=== PATIENT | female | born 1960 | race Caucasian/White ===

== ENCOUNTER 2016-10-05 02:56 | Outpatient (CLI) | payer BC | END 2016-10-05 02:57 | disposition EMS.NT | DX: R03.0 Elevated blood-pressure reading, without diagnosis of hypertension (principal) ==

== ENCOUNTER 2017-10-05 07:33 | Outpatient (CLI) | payer BC ==
[2017-10-05 10:25] LABS: BASOPHILS % (AUTO) 0.5 %; EOSINOPHILS # (AUTO) 0.1 10^3/uL (0.0-0.7); EOSINOPHILS % (AUTO) 2.7 %; HGB - HEMOGLOBIN 11.6 g/dL (12.0-16.0); LYMPHOCYTES # (AUTO) 1.2 10^3/uL (1.5-3.5); LYMPHOCYTES % (AUTO) 29.5 %; MEAN CORPUSCULAR HEMOGLOBIN 31.3 pg (27.0-31.0); MEAN CORPUSCULAR HGB CONC 33.5 g/dL (32.0-36.0); MEAN CORPUSCULAR VOLUME 93.2 fL (81.0-99.0); MEAN PLATELET VOLUME 7.3 fL (7.9-10.8); MONOCYTES # (AUTO) 0.2 10^3/uL (0.0-1.0); MONOCYTES % (AUTO) 5.3 %; NEUTROPHILS # (AUTO) 2.5 10^3/uL (1.5-6.6); PLT - PLATELET COUNT 226 10^3/uL (130-450); RED BLOOD COUNT 3.73 10^6/uL (4.20-5.40); RED CELL DISTRIBUTION WIDTH 14.5 % (12.0-15.0)
== END 2017-10-05 07:34 | disposition home or self-care (01) ==
LOC: LAB.F 07:33
PROVIDERS: ATTEND Obstetrics & Gynecology
DX: C56.9 Malignant neoplasm of unspecified ovary (principal)
CPT/HCPCS: 36415; 85025

== ENCOUNTER 2017-10-22 07:15 | Outpatient (CLI) | payer BC ==
[2017-10-22 10:29] LABS: BASOPHILS % (AUTO) 0.4 %; EOSINOPHILS # (AUTO) 0.1 10^3/uL (0.0-0.7); EOSINOPHILS % (AUTO) 2.6 %; LYMPHOCYTES # (AUTO) 1.1 10^3/uL (1.5-3.5); LYMPHOCYTES % (AUTO) 40.8 %; MEAN CORPUSCULAR HEMOGLOBIN 31.2 pg (27.0-31.0); MEAN CORPUSCULAR HGB CONC 33.9 g/dL (32.0-36.0); MEAN PLATELET VOLUME 6.9 fL (7.9-10.8); MONOCYTES # (AUTO) 0.5 10^3/uL (0.0-1.0); MONOCYTES % (AUTO) 18.4 %; NEUTROPHILS % (AUTO) 37.8 %; PLT - PLATELET COUNT 269 10^3/uL (130-450); RED BLOOD COUNT 3.85 10^6/uL (4.20-5.40); WHITE BLOOD COUNT 2.7 x10^3/uL (4.8-10.8)
[2017-10-22 10:41] LABS: ALBUMIN 3.8 g/dL (3.2-5.5); ALBUMIN/GLOBULIN RATIO 1.5 (1.0-2.2); BILIRUBIN,TOTAL 0.3 mg/dL (0.2-1.0); CREATININE 0.8 mg/dL (0.4-1.0); MAGNESIUM 1.9 mg/dL (1.7-2.8); TOTAL PROTEIN 6.4 g/dL (6.7-8.2)
[2017-10-22 11:08] LABS: PLATELET ESTIMATE, MANUAL NORMAL (130-450,000) (NORMAL); PLATELET MORPHOLOGY NORMAL APPEARANCE (NORMAL); RBC MORPHOLOGY (MULTIPLE) NORMAL APPEARANCE (NORMAL)
== END 2017-10-22 07:16 | disposition home or self-care (01) ==
LOC: LAB.F 07:15
PROVIDERS: ATTEND Obstetrics & Gynecology
DX: C56.9 Malignant neoplasm of unspecified ovary (principal)
CPT/HCPCS: 36415; 80053; 83735; 85025; 86304

== ENCOUNTER 2017-11-02 07:09 | Outpatient (CLI) | payer BC ==
[2017-11-02 11:53] LABS: BASOPHILS % (AUTO) 0.7 %; EOSINOPHILS % (AUTO) 1.3 %; HGB - HEMOGLOBIN 11.6 g/dL (12.0-16.0); LYMPHOCYTES # (AUTO) 0.9 10^3/uL (1.5-3.5); LYMPHOCYTES % (AUTO) 22.6 %; MEAN CORPUSCULAR HEMOGLOBIN 31.2 pg (27.0-31.0); MEAN CORPUSCULAR HGB CONC 33.9 g/dL (32.0-36.0); MONOCYTES # (AUTO) 0.2 10^3/uL (0.0-1.0); MONOCYTES % (AUTO) 6.3 %; NEUTROPHILS # (AUTO) 2.7 10^3/uL (1.5-6.6); NEUTROPHILS % (AUTO) 69.1 %; PLT - PLATELET COUNT 120 10^3/uL (130-450); RED CELL DISTRIBUTION WIDTH 15.4 % (12.0-15.0); WHITE BLOOD COUNT 3.9 x10^3/uL (4.8-10.8)
[2017-11-02 12:15] LABS: ALBUMIN 3.6 g/dL (3.2-5.5); ALBUMIN/GLOBULIN RATIO 1.3 (1.0-2.2); BILIRUBIN,TOTAL 0.4 mg/dL (0.2-1.0); CALCIUM 8.7 mg/dL (8.5-10.3); CREATININE 0.7 mg/dL (0.4-1.0); MAGNESIUM 1.9 mg/dL (1.7-2.8); TOTAL PROTEIN 6.4 g/dL (6.7-8.2)
== END 2017-11-02 07:10 | disposition home or self-care (01) ==
LOC: LAB.F 07:09
PROVIDERS: ATTEND Obstetrics & Gynecology
DX: C56.9 Malignant neoplasm of unspecified ovary (principal)
CPT/HCPCS: 36415; 80053; 83735; 85025; 86304

== ENCOUNTER 2017-11-19 07:35 | Outpatient (CLI) | payer BC ==
[2017-11-19 11:07] LABS: BASOPHILS % (AUTO) 1.1 %; EOSINOPHILS # (AUTO) 0.1 10^3/uL (0.0-0.7); EOSINOPHILS % (AUTO) 3.1 %; LYMPHOCYTES # (AUTO) 1.1 10^3/uL (1.5-3.5); LYMPHOCYTES % (AUTO) 36.4 %; MEAN CORPUSCULAR HEMOGLOBIN 31.2 pg (27.0-31.0); MEAN CORPUSCULAR HGB CONC 33.9 g/dL (32.0-36.0); MEAN PLATELET VOLUME 7.3 fL (7.9-10.8); MONOCYTES # (AUTO) 0.6 10^3/uL (0.0-1.0); NEUTROPHILS # (AUTO) 1.2 10^3/uL (1.5-6.6); NEUTROPHILS % (AUTO) 40.4 %; PLT - PLATELET COUNT 325 10^3/uL (130-450); RED BLOOD COUNT 3.84 10^6/uL (4.20-5.40); RED CELL DISTRIBUTION WIDTH 16.4 % (12.0-15.0)
[2017-11-19 11:33] LABS: ALBUMIN 3.8 g/dL (3.2-5.5); ALBUMIN/GLOBULIN RATIO 1.5 (1.0-2.2); BILIRUBIN,TOTAL 0.6 mg/dL (0.2-1.0); CALCIUM 8.9 mg/dL (8.5-10.3); CREATININE 0.8 mg/dL (0.4-1.0); MAGNESIUM 1.8 mg/dL (1.7-2.8); TOTAL PROTEIN 6.3 g/dL (6.7-8.2)
== END 2017-11-19 07:36 | disposition home or self-care (01) ==
LOC: LAB.F 07:35
PROVIDERS: ATTEND Obstetrics & Gynecology
DX: C56.9 Malignant neoplasm of unspecified ovary (principal)
CPT/HCPCS: 36415; 80053; 83735; 85025; 86304

== ENCOUNTER 2017-11-30 07:26 | Outpatient (CLI) | payer BC ==
[2017-11-30 12:17] LABS: BASOPHILS % (AUTO) 0.9 %; EOSINOPHILS # (AUTO) 0.1 10^3/uL (0.0-0.7); EOSINOPHILS % (AUTO) 2.2 %; LYMPHOCYTES # (AUTO) 1.1 10^3/uL (1.5-3.5); LYMPHOCYTES % (AUTO) 30.5 %; MEAN CORPUSCULAR VOLUME 91.3 fL (81.0-99.0); MEAN PLATELET VOLUME 8.7 fL (7.9-10.8); MONOCYTES # (AUTO) 0.3 10^3/uL (0.0-1.0); MONOCYTES % (AUTO) 7.3 %; NEUTROPHILS # (AUTO) 2.1 10^3/uL (1.5-6.6); NEUTROPHILS % (AUTO) 59.1 %; PLT - PLATELET COUNT 109 10^3/uL (130-450); RED BLOOD COUNT 3.87 10^6/uL (4.20-5.40); RED CELL DISTRIBUTION WIDTH 16.5 % (12.0-15.0); WHITE BLOOD COUNT 3.5 x10^3/uL (4.8-10.8)
== END 2017-11-30 07:27 | disposition home or self-care (01) ==
LOC: LAB.F 07:26
PROVIDERS: ATTEND Obstetrics & Gynecology
DX: C56.9 Malignant neoplasm of unspecified ovary (principal)
CPT/HCPCS: 36415; 85025

== ENCOUNTER 2017-12-17 08:05 | Outpatient (CLI) | payer MEDICARE, BC ==
[2017-12-17 12:34] LABS: BASOPHILS % (AUTO) 1.1 %; EOSINOPHILS # (AUTO) 0.2 10^3/uL (0.0-0.7); EOSINOPHILS % (AUTO) 4.6 %; HGB - HEMOGLOBIN 12.4 g/dL (12.0-16.0); LYMPHOCYTES % (AUTO) 28.9 %; MEAN CORPUSCULAR HEMOGLOBIN 30.9 pg (27.0-31.0); MEAN CORPUSCULAR HGB CONC 33.4 g/dL (32.0-36.0); MEAN CORPUSCULAR VOLUME 92.7 fL (81.0-99.0); MEAN PLATELET VOLUME 7.9 fL (7.9-10.8); MONOCYTES # (AUTO) 0.6 10^3/uL (0.0-1.0); MONOCYTES % (AUTO) 17.9 %; NEUTROPHILS # (AUTO) 1.6 10^3/uL (1.5-6.6); NEUTROPHILS % (AUTO) 47.5 %; PLT - PLATELET COUNT 298 10^3/uL (130-450); RED BLOOD COUNT 4.01 10^6/uL (4.20-5.40); RED CELL DISTRIBUTION WIDTH 17.4 % (12.0-15.0); WHITE BLOOD COUNT 3.3 x10^3/uL (4.8-10.8)
[2017-12-17 12:47] LABS: ALBUMIN 3.7 g/dL (3.2-5.5); ALBUMIN/GLOBULIN RATIO 1.3 (1.0-2.2); BILIRUBIN,TOTAL 0.4 mg/dL (0.2-1.0); CALCIUM 9.3 mg/dL (8.5-10.3); CREATININE 0.7 mg/dL (0.4-1.0); MAGNESIUM 1.9 mg/dL (1.7-2.8); TOTAL PROTEIN 6.5 g/dL (6.7-8.2)
== END 2017-12-17 08:06 | disposition home or self-care (01) ==
LOC: LAB.F 08:05
PROVIDERS: ATTEND Obstetrics & Gynecology
DX: C56.9 Malignant neoplasm of unspecified ovary (principal)
CPT/HCPCS: 36415; 80053; 83735; 85025

== ENCOUNTER 2017-12-28 07:53 | Outpatient (CLI) | payer MEDICARE, BC ==
[2017-12-28 10:39] LABS: BASOPHILS % (AUTO) 0.7 %; EOSINOPHILS # (AUTO) 0.1 10^3/uL (0.0-0.7); HGB - HEMOGLOBIN 11.9 g/dL (12.0-16.0); LYMPHOCYTES # (AUTO) 0.8 10^3/uL (1.5-3.5); LYMPHOCYTES % (AUTO) 23.6 %; MEAN CORPUSCULAR HGB CONC 33.6 g/dL (32.0-36.0); MEAN CORPUSCULAR VOLUME 92.2 fL (81.0-99.0); MEAN PLATELET VOLUME 8.4 fL (7.9-10.8); MONOCYTES # (AUTO) 0.2 10^3/uL (0.0-1.0); MONOCYTES % (AUTO) 6.4 %; NEUTROPHILS # (AUTO) 2.3 10^3/uL (1.5-6.6); NEUTROPHILS % (AUTO) 67.3 %; PLT - PLATELET COUNT 112 10^3/uL (130-450); RED BLOOD COUNT 3.84 10^6/uL (4.20-5.40); WHITE BLOOD COUNT 3.5 x10^3/uL (4.8-10.8)
== END 2017-12-28 07:54 | disposition home or self-care (01) ==
LOC: LAB.F 07:53
PROVIDERS: ATTEND Obstetrics & Gynecology
DX: C56.9 Malignant neoplasm of unspecified ovary (principal)
CPT/HCPCS: 36415; 85025

== ENCOUNTER 2018-01-14 08:14 | Outpatient (CLI) | payer MEDICARE, BC ==
[2018-01-14 11:42] LABS: BASOPHILS % (AUTO) 0.7 %; EOSINOPHILS # (AUTO) 0.1 10^3/uL (0.0-0.7); EOSINOPHILS % (AUTO) 4.1 %; HGB - HEMOGLOBIN 12.3 g/dL (12.0-16.0); LYMPHOCYTES # (AUTO) 0.6 10^3/uL (1.5-3.5); LYMPHOCYTES % (AUTO) 24.6 %; MEAN CORPUSCULAR HEMOGLOBIN 31.3 pg (27.0-31.0); MEAN CORPUSCULAR HGB CONC 33.8 g/dL (32.0-36.0); MEAN CORPUSCULAR VOLUME 92.5 fL (81.0-99.0); MEAN PLATELET VOLUME 7.3 fL (7.9-10.8); MONOCYTES # (AUTO) 0.4 10^3/uL (0.0-1.0); MONOCYTES % (AUTO) 14.9 %; NEUTROPHILS # (AUTO) 1.4 10^3/uL (1.5-6.6); NEUTROPHILS % (AUTO) 55.7 %; PLT - PLATELET COUNT 322 10^3/uL (130-450); RED BLOOD COUNT 3.94 10^6/uL (4.20-5.40); RED CELL DISTRIBUTION WIDTH 17.3 % (12.0-15.0); WHITE BLOOD COUNT 2.5 x10^3/uL (4.8-10.8)
[2018-01-14 12:03] LABS: MAGNESIUM 1.9 mg/dL (1.7-2.8); PHOSPHORUS 3.9 mg/dL (2.5-4.6)
[2018-01-14 12:07] LABS: ALBUMIN 3.6 g/dL (3.2-5.5); ALBUMIN/GLOBULIN RATIO 1.3 (1.0-2.2); ALKALINE PHOSPHATASE 67 IU/L (42-121); ALT ALANINE AMINOTRANSFERASE 29 IU/L (10-60); AST ASPARTATE AMINOTRANSFERASE 25 IU/L (10-42); BILIRUBIN,TOTAL 0.5 mg/dL (0.2-1.0); BUN - BLOOD UREA NITROGEN 13 mg/dL (6-20); CALCIUM 9.4 mg/dL (8.5-10.3); CARBON DIOXIDE - CO2 28 mmol/L (21-32); CHLORIDE 103 mmol/L (101-111); CHOL/HDL RATIO 3.3 (<4.4); CHOLESTEROL 235 mg/dL; CREATININE 0.7 mg/dL (0.4-1.0); GFR - MDRD 86 (>89); GLUCOSE 121 mg/dL (70-100); HB2 TOTAL 13.4 g/dL; HDL CHOLESTEROL 72 mg/dL; HEMOGLOBIN A1C 0.55 g/dL; HEMOGLOBIN A1C % 5.9 % (4.6-6.2); LDL CHOLESTEROL,CALCULATED 125 mg/dL; LDL/HDL RATIO 1.7 (<4.4); SODIUM 138 mmol/L (135-145); TOTAL PROTEIN 6.4 g/dL (6.7-8.2); VLDL CHOLESTEROL 38 mg/dL
[2018-01-14 12:10] LABS: BILIRUBIN,DIRECT < 0.1 mg/dL (0.1-0.5)
[2018-01-14 13:01] LABS: PLATELET ESTIMATE, MANUAL NORMAL (130-450,000) (NORMAL); PLATELET MORPHOLOGY NORMAL APPEARANCE (NORMAL)
== END 2018-01-14 08:15 | disposition home or self-care (01) ==
LOC: LAB.F 08:14
PROVIDERS: ATTEND Obstetrics & Gynecology
DX: Z00.00 Encounter for general adult medical examination without abnormal findings (principal); C56.1 Malignant neoplasm of right ovary; R73.01 Impaired fasting glucose; I10 Essential (primary) hypertension; E78.2 Mixed hyperlipidemia
CPT/HCPCS: 36415; 80048; 80053; 80061; 80076; 82248; 83036; 83615; 83721; 83735; 84100; 85025; 86304

== ENCOUNTER 2018-01-28 07:35 | Outpatient (CLI) | payer MEDICARE, BC ==
[2018-01-28 11:49] LABS: BASOPHILS % (AUTO) 1.3 %; EOSINOPHILS % (AUTO) 1.4 %; HGB - HEMOGLOBIN 11.1 g/dL (12.0-16.0); LYMPHOCYTES # (AUTO) 0.9 10^3/uL (1.5-3.5); LYMPHOCYTES % (AUTO) 35.4 %; MEAN CORPUSCULAR HEMOGLOBIN 31.5 pg (27.0-31.0); MEAN CORPUSCULAR HGB CONC 34.2 g/dL (32.0-36.0); MEAN CORPUSCULAR VOLUME 92.4 fL (81.0-99.0); MEAN PLATELET VOLUME 8.1 fL (7.9-10.8); MONOCYTES # (AUTO) 0.3 10^3/uL (0.0-1.0); MONOCYTES % (AUTO) 10.2 %; NEUTROPHILS # (AUTO) 1.3 10^3/uL (1.5-6.6); NEUTROPHILS % (AUTO) 51.7 %; PLT - PLATELET COUNT 106 10^3/uL (130-450); RED CELL DISTRIBUTION WIDTH 16.2 % (12.0-15.0); WHITE BLOOD COUNT 2.6 x10^3/uL (4.8-10.8)
[2018-01-28 14:04] LABS: PLATELET ESTIMATE, MANUAL DECREASED (<130,000) (NORMAL); PLATELET MORPHOLOGY NORMAL APPEARANCE (NORMAL)
== END 2018-01-28 07:36 | disposition home or self-care (01) ==
LOC: LAB.F 07:35
PROVIDERS: ATTEND Obstetrics & Gynecology
DX: C56.1 Malignant neoplasm of right ovary (principal)
CPT/HCPCS: 36415; 85025

== ENCOUNTER 2018-02-11 08:08 | Outpatient (CLI) | payer MEDICARE, BC ==
[2018-02-11 12:00] LABS: EOSINOPHILS # (AUTO) 0.1 10^3/uL (0.0-0.7); EOSINOPHILS % (AUTO) 3.6 %; HGB - HEMOGLOBIN 11.5 g/dL (12.0-16.0); LYMPHOCYTES # (AUTO) 0.8 10^3/uL (1.5-3.5); LYMPHOCYTES % (AUTO) 33.2 %; MEAN CORPUSCULAR HEMOGLOBIN 31.3 pg (27.0-31.0); MEAN PLATELET VOLUME 7.1 fL (7.9-10.8); MONOCYTES # (AUTO) 0.5 10^3/uL (0.0-1.0); NEUTROPHILS % (AUTO) 40.2 %; PLT - PLATELET COUNT 315 10^3/uL (130-450); RED BLOOD COUNT 3.67 10^6/uL (4.20-5.40); RED CELL DISTRIBUTION WIDTH 17.6 % (12.0-15.0); WHITE BLOOD COUNT 2.5 x10^3/uL (4.8-10.8)
[2018-02-11 12:14] LABS: ALBUMIN 3.5 g/dL (3.2-5.5); ALKALINE PHOSPHATASE 65 IU/L (42-121); ALT ALANINE AMINOTRANSFERASE 33 IU/L (10-60); AST ASPARTATE AMINOTRANSFERASE 30 IU/L (10-42); BILIRUBIN,TOTAL 0.5 mg/dL (0.2-1.0); BUN - BLOOD UREA NITROGEN 13 mg/dL (6-20); CALCIUM 9.1 mg/dL (8.5-10.3); CARBON DIOXIDE - CO2 28 mmol/L (21-32); CHLORIDE 108 mmol/L (101-111); CREATININE 0.8 mg/dL (0.4-1.0); GFR - MDRD 74 (>89); GLUCOSE 108 mg/dL (70-100); MAGNESIUM 1.9 mg/dL (1.7-2.8); PHOSPHORUS 4.3 mg/dL (2.5-4.6); SODIUM 139 mmol/L (135-145); TOTAL PROTEIN 6.4 g/dL (6.7-8.2)
[2018-02-11 12:21] LABS: BILIRUBIN,DIRECT < 0.1 mg/dL (0.1-0.5)
[2018-02-11 12:53] LABS: PLATELET ESTIMATE, MANUAL NORMAL (130-450,000) (NORMAL); PLATELET MORPHOLOGY NORMAL APPEARANCE (NORMAL); RBC MORPHOLOGY (MULTIPLE) NORMAL APPEARANCE (NORMAL)
== END 2018-02-11 08:09 | disposition home or self-care (01) ==
LOC: LAB.F 08:08
PROVIDERS: ATTEND Obstetrics & Gynecology
DX: C56.1 Malignant neoplasm of right ovary (principal)
CPT/HCPCS: 36415; 80048; 80076; 81599; 83615; 83735; 84100; 85025; 86304

== ENCOUNTER 2018-02-22 08:10 | Outpatient (CLI) | payer MEDICARE, BC ==
[2018-02-22 10:27] LABS: BASOPHILS % (AUTO) 0.7 %; HGB - HEMOGLOBIN 11.2 g/dL (12.0-16.0); LYMPHOCYTES # (AUTO) 0.8 10^3/uL (1.5-3.5); LYMPHOCYTES % (AUTO) 21.8 %; MEAN CORPUSCULAR HEMOGLOBIN 31.7 pg (27.0-31.0); MEAN CORPUSCULAR HGB CONC 34.4 g/dL (32.0-36.0); MEAN CORPUSCULAR VOLUME 92.2 fL (81.0-99.0); MEAN PLATELET VOLUME 7.9 fL (7.9-10.8); MONOCYTES # (AUTO) 0.2 10^3/uL (0.0-1.0); MONOCYTES % (AUTO) 4.6 %; NEUTROPHILS # (AUTO) 2.5 10^3/uL (1.5-6.6); NEUTROPHILS % (AUTO) 71.9 %; PLT - PLATELET COUNT 83 10^3/uL (130-450); RED BLOOD COUNT 3.54 10^6/uL (4.20-5.40); RED CELL DISTRIBUTION WIDTH 17.5 % (12.0-15.0); WHITE BLOOD COUNT 3.4 x10^3/uL (4.8-10.8)
== END 2018-02-22 08:11 | disposition home or self-care (01) ==
LOC: LAB.F 08:10
PROVIDERS: ATTEND Nurse Practitioner Family
DX: C56.1 Malignant neoplasm of right ovary (principal)
CPT/HCPCS: 36415; 85025

== ENCOUNTER 2018-03-18 07:06 | Outpatient (CLI) | payer MEDICARE, BC ==
[2018-03-18 10:55] LABS: BASOPHILS % (AUTO) 0.7 %; EOSINOPHILS % (AUTO) 1.4 %; HGB - HEMOGLOBIN 12.1 g/dL (12.0-16.0); LYMPHOCYTES % (AUTO) 32.7 %; MEAN CORPUSCULAR HEMOGLOBIN 32.6 pg (27.0-31.0); MEAN CORPUSCULAR HGB CONC 34.9 g/dL (32.0-36.0); MEAN CORPUSCULAR VOLUME 93.3 fL (81.0-99.0); MEAN PLATELET VOLUME 7.6 fL (7.9-10.8); MONOCYTES # (AUTO) 0.5 10^3/uL (0.0-1.0); MONOCYTES % (AUTO) 17.3 %; NEUTROPHILS # (AUTO) 1.4 10^3/uL (1.5-6.6); NEUTROPHILS % (AUTO) 47.9 %; PLT - PLATELET COUNT 196 10^3/uL (130-450); RED CELL DISTRIBUTION WIDTH 18.7 % (12.0-15.0)
[2018-03-18 11:06] LABS: ALBUMIN 3.9 g/dL (3.2-5.5); BILIRUBIN,DIRECT 0.1 mg/dL (0.1-0.5); BILIRUBIN,TOTAL 0.6 mg/dL (0.2-1.0); CALCIUM 9.1 mg/dL (8.5-10.3); CREATININE 0.8 mg/dL (0.4-1.0); MAGNESIUM 1.9 mg/dL (1.7-2.8); TOTAL PROTEIN 6.7 g/dL (6.7-8.2)
== END 2018-03-18 07:07 | disposition home or self-care (01) ==
LOC: LAB.F 07:06
PROVIDERS: ATTEND Obstetrics & Gynecology
DX: C56.1 Malignant neoplasm of right ovary (principal); R25.2 Cramp and spasm; E61.2 Magnesium deficiency
CPT/HCPCS: 36415; 80048; 80076; 83615; 83735; 84100; 85025; 86304

== ENCOUNTER 2019-11-17 12:14 | Outpatient (CLI) | payer MEDICARE, BC ==
--- NOTE | 2019-11-17 13:38 | Ultrasound Report ---
Reason: RUQ PAIN, OVARIAN CA Procedure Date: 11/17/2019 Accession Number: [id number] / [id number] Procedure: US - Abdomen Limited CPT Code: Final Report FULL RESULT: EXAM: ABDOMEN ULTRASOUND LIMITED, RUQ EXAM DATE: 11/17/2019 12:14 PM. CLINICAL HISTORY: RUQ PAIN, OVARIAN CA. COMPARISON: CT CHEST ABDOMEN PELVIC 09/19/2019 1:29 PM. TECHNIQUE: Real-time scanning was performed with static images obtained. FINDINGS: Liver: There are heterogeneous masses within the liver. These of increased in size. Main portal vein flow: Hepatopetal. Gallbladder: No stones, wall thickening, or sonographic Jones's sign. Biliary System: CBD measures 7 mm. No intrahepatic or extrahepatic ductal dilatation. Other: The right kidney demonstrates no hydronephrosis. IMPRESSION: 1. There are heterogeneous hypoechoic masses within the liver. These are consistent with hepatic metastases. These have increased in size as compared to the prior study. 2. There is no intra-or extrahepatic bile duct dilatation. 3. The gallbladder demonstrates no stones or wall thickening. RADIA
== END 2019-11-17 12:15 | disposition home or self-care (01) ==
LOC: DI 12:14
PROVIDERS: ATTEND Obstetrics & Gynecology
DX: R16.0 Hepatomegaly, not elsewhere classified (principal); C56.9 Malignant neoplasm of unspecified ovary
CPT/HCPCS: 76705

== ENCOUNTER 2019-11-25 14:45 | Outpatient (CLI) | payer MEDICARE, BC ==
--- NOTE | 2019-11-25 18:13 | CONSULTATION NOTE ---
Palliative Care Consultation - Referral Referring Provider: Dr. Kathie Torres Time of Visit: [id number] Referral setting: Home Referral Reason: Ovarian Ca with liver mets/anxiety/goals of care - Information Sources Records reviewed: Previous records reviewed History/Review of Systems obtained from: Patient Exam limitations: No limitations - History of Present Illness Brief History of Present Illness: This is a 59-year-old woman who was originally diagnosed in 06/2015 with bilateral pelvic masses, ascites, and in 07/2015 underwent radical tumor cytoreduction including a total abdominal hysterectomy, bilateral salpingo- oophorectomy, and total omentectomy. 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 She has had multiple rounds of chemotherapy, including participating in a clinical trial, has had several rounds of radiation, and does understand currently she is presenting now with concern for more limited options. She does understand her treatment is palliative in nature, but is hoping both for improved quality as well as quantity of life. She currently does have known increasing liver mets, with an acute exacerbation of pain last week. She has known splenic mass mets, and mesenteric and retroperitoneal lymph nodes, diaphragmatic/cardiophrenic metastatic implants, and left upper quadrant peritoneal mets. 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 She remains on low-dose prednisone at 7.5 mg to control long-term side effect. She is recent only experienced progression of her disease, specifically related to her liver mets, and has just started new chemotherapy of carboplatinum /gemcitabine, and Avastin. She received her first dose last , with already reduction in her pain. She expresses concerns regarded reduced dosing to 20%, as her approach has been to "go for it". She does understand this is in response to cumulative effects, and concern for patient's more life-threatening side effects with pancytopenia. She is found quite difficult with COVID-19, not only with ramifications on her treatment, but also with the impact on her quality of life and feeling isolated. Palliative care is meeting with patient for first time, establish rapport, provide support for advanced care planning, as well is initiate counseling regarding pain and symptom management and anticipatory guidance. Medical/Surgical History - Past Medical History Cardiovascular: reports: Hypertension, High cholesterol Respiratory: reports: Shortness of breath Neuro: Peripheral neuropathy (CIPN), Other (encephalitis as result of immunotherapy) Endocrine/Autoimmune: reports: Type 2 diabetes GI: reports: GERD, Chronic diarrhea TANK CAR RECONDITIONER: reports: Ovarian cancer : reports: Incontinence HEENT: reports: Chronic vision loss Psych: reports: Depression, Anxiety, ADD/ADHD MRSA Hx?: No - Past Surgical History /TANK CAR RECONDITIONER: reports: Hysterectomy, Oophrectomy, Other (colposcopty) Cardiovascular: reports: Other (portacath) HEENT: reports: Tonsil/Adenoidectomy Derm: reports: Other (lipoma removal) - Substance History Use: Uses substance without health or social issues: NONE Social History - Living Situation Living arrangement: At home Living Situation: Alone Support System: Patient has recently broken up with long-term friend, who had been providing significant amount of support around her treatments and care. He moved out in October, she is feeling much more isolated, and concerned as this is the first time she is ever lived alone. She does have a son in [place], but has not been involved in her care. She has a daughter who lives in [place], who is providing increased support, particular around grocery shopping, and has been available if needed. 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 Family History - Family History Family History: Mother: (age 45), Diabetes, Type 2, Father: , Cancer (age 75 with throat ca), Sister: Alive and Well, Brother: Alive and Well Medications/Allergies - Medications Home Medications: Ambulatory Orders Medication Instructions Recorded Confirmed Atorvastatin Calcium 20 mg PO DAILY 11/25/19 11/25/19 Cholecalciferol (Vitamin D3) 2,000 units PO DAILY 11/25/19 11/25/19 [Vitamin D3] Diphenoxylate/Atropine [Lomotil] 1 - 2 tab PO Q4HR PRN MDD 12 11/25/19 11/25/19 Insulin Glargine [Lantus Solostar] 12 units SUBQ DAILY 11/25/19 11/25/19 Insulin Lispro [Humalog] 4 units SUBQ TID MDD 40 units 11/25/19 11/25/19 Levothyroxine [Synthroid] 75 mcg PO DAILY 11/25/19 11/25/19 Losartan Potassium 100 mg PO DAILY 11/25/19 11/25/19 Ondansetron [Ondansetron Odt] 4 mg PO Q8HR PRN 11/25/19 11/25/19 amLODIPine [Norvasc] 5 mg PO DAILY 11/25/19 11/25/19 metFORMIN [Glucophage] 1,500 mg PO DAILY MDD divided doses 11/25/19 11/25/19 Papaya 1 pkt PO DAILY 11/26/19 11/26/19 Prednisone 7.5 mg PO DAILY 11/26/19 Senna [Senokot] 1 - 2 mg PO BID PRN 11/26/19 11/26/19 oxyCODONE [Roxicodone] 1 - 2 tab PO Q4HR PRN 11/26/19 11/26/19 polyethylene glycoL 3350 [Miralax] 17 gm PO DAILY PRN 11/26/19 11/26/19 - Allergies Allergies/Adverse Reactions: Allergies Allergy/AdvReac Type Severity Reaction Status Date / Time Penicillins Allergy Anaphylaxis Verified 11/25/19 18:55 lisinopril AdvReac Respiratory Verified 11/25/19 18:56 Review of Systems - Constitutional Constitutional: reports: Fatigue, Weight stable. denies: Fever, Chills - Eyes Eyes: reports: Vision loss, Corrective lenses - Ears, Nose & Throat Ears, Nose & Throat: reports: Dry mouth - Cardiovascular Cardiovascular: reports: Decr. exercise tolerance. denies: Edema - Respiratory Respiratory: denies: SOB at rest - Gastrointestinal Gastrointestinal: reports: Diarrhea (daily in am; attributes to metformin), Good appetite. denies: Nausea, Reflux/heartburn - Genitourinary Genitourinary: reports: Incontinence (intermittent) - Musculoskeletal Musculoskeletal: reports: Muscle weakness - Integumentary Integumentary: reports: Dryness, Hair changes - Neurological Neurological: reports: Numbness (mild related to chemotherapy). denies: Headache - Psychiatric Psychiatric: reports: Depression, Anxiety - Endocrine Endocrine: reports: Diabetes type 2 (does not check BS regularly;), Hypothyroidism - Hematologic/Lymphatic Hematologic/Lymphatic: reports: Anemia (persistent through most of treatments; has received frequent blood transfusions). denies: Recurrent infections - All Other Systems All Other Systems: reports: Reviewed and negative Physical Exam - Vital Signs Temperature: 96.5 C Pulse Rate: 95 Respiratory Rate: 18 O2 Saturation: 95 (ra @ rest) Blood Pressure: 138/78 - Physical Exam General Appearance: positive: Alert, Anxious Eyes Bilateral: positive: Normal inspection ENT: positive: No signs of dehydration Neck: positive: Trachea midline Cardiovascular: positive: Regular rate & rhythm Respiratory: positive: No respiratory distress, Diminished in bases. negative: Wheezes, Rales, Rhonchi Abdomen: positive: Soft, Nml bowel sounds, Tenderness, Obese Skin: positive: Pallor, Dryness Extremities: positive: No pedal edema Neurologic/Psychiatric: positive: Oriented x3, Mood/affect nml Palliative Care - POLST Patient has POLST: No Pain: Pain improved, Location (Have been escalating, was diagnosed with increasing liver lesions, has gotten relief with most recent chemo. Has not needed any further pain medication. She does have oxycodone 5 mg, which she did use 1 tab every 4 hours [id number], she does feel like may be getting some recurrence with some "twinges". Perceives she has poor pain tolerance, and had found it fairly excruciating.right upper quadrant;) Tiredness/Fatigue: Moderate (4-6) Drowsiness/Sedation: None Nausea: None Anorexia: Mild (1-3) Dyspnea: Mild (1-3) Depression: Mild (1-3) Anxiety: Moderate (4-6) Feelings of wellbeing/Perceived Quality of Life: Fair, Acceptable Sleep: Sleeps well Constipation: Intermittent constipation (usually has diarrhea; did experience opioid induced constipation with meds) Performance Status: Patient is able to manage her own ADLs, her performance status is good. She is cooking for herself, though at times does find this onerous. Her fatigue does fluctuate accordingly to her treatment regimens. She does have a friend who is willing to drive her to chemo, otherwise is able to drive herself. Her daughter is providing her some support. She is trying to walk on a regular basis, she does have a little dog that does inspire her to keep moving. - Palliative Care Discussion: Patient does understand she is getting to the "end of the train tracks" as far as her treatment options, but her nature is to continue to fight. She shares her father had throat cancer, and actually of complications of his chemotherapy. She has had conversations with her current oncologist about balancing her treatment, and she "does not want to kill her". We did discuss in the context of what her wishes were for end-of-life, which were to be at home, surrounded by loved ones, and does not really want to in the hospital. She has been hospitalized multiple times for complications, we did discuss though in the context as she is getting more of close to end-of-life, these decisions need to be weighed in the context of her goals. She is hoping her goal of making it 5 years, which would be in June of this year can be met. She did meet her goal of making it to her 59th birthday. She has always loved to travel, and has traveled in between treatments, and is found to loss of this option somewhat depressing. She would like to make yet another trip, and have this is an option, but unfortunately this point in time there are lots of unknowns with [facility]. She is a person who joel best with information, though she has been feeling somewhat more overwhelmed, particularly in isolation. She is also someone who likes to plan, though this is getting more difficult. We did initiate conversations regarding advanced care planning, she would want her daughter to be her D POA, but she is in her 30s. We discussed the need then to be more prescriptive in giving her direction around her end-of-life wishes. We did discuss the POLST, as well as other supports and planning that might be of help to her. Will make a referral to medical palliative care adoption social worker. Impression and Recommendations - Palliative Care Impression: This is a 59-year-old woman with recurrent ovarian/fallopian tube cancer, currently receiving active treatment of chemotherapy. Patient has had exacerbation in symptoms, does understand treatment is palliative in nature, and interested in palliative care support for quality of life issues. Palliative care to provide support for pain and symptom management, advanced care planning, and anticipatory guidance. Recommendations/Counseling Done: 1. Pain of neoplastic origin. This is multifactorial, but most likely related to her liver mets and visceral etiology. Patient did use oxycodone 5 mg with good relief, currently she is having no recurrent pain. Counseling provided regarding the use of the oxycodone, other options for long-acting if pain becomes persistent, patient has quite significant fear about pain balance with sedation, particular on end-of-life wishes as well. Education provided. Patient is been instructed to call if she is using more than 4-5 doses of oxycodone in 24 hours and will adjust medication regimen. Counseling provided need to use 1 pharmacy, she uses [facility] related to her insurance over and lid would, as well as one prescriber, palliative care will provide opioid prescribing support. 2. Constipation induced by opioids. Counseling provided regarding bowel program if to reinitiate. Counseling provided regarding MiraLAX and senna titration. Patient verbalized understanding and written instructions provided. 3. Diarrhea. This appears to be longstanding, with multiple etiologies. Including metformin, past history of radiation in her bowel, has been persistent for about 6 months. She is using Lomotil with good response. Perceives metformin as part of her cancer program, and does not want to look at dose adjustment. Did provide counseling regarding concern for loss of potassium and fluids, encouraged to be aggressively managing plus balance with regular bowel movements. 4. Diabetes type 2. Patient is somewhat laissez-faire and control, she has many things on her plate and this does feel overwhelming. She is has had referrals to endocrinology in the past, but is not had energy to follow through. Recommended get A1c, we can make adjustments based on this as well as if wants to pursue further endocrinology recommendations, they are doing telemedicine visits and can make a referral. 5. Recurrent ovarian cancer with multiple mets. Patient is currently pursuing active palliative chemotherapy, discussion and counseling regarding balance of benefits and burdens, in the context of patient's health believes, goals, and coping. Counseling provided regarding the role of palliative care for support for maximizing quality of life and ability to tolerate chemotherapy with aggressive symptom management and monitoring. 6. Advanced care planning. Recommended patient fill out D POA as priority, simple form left. Introduced the POLST, as well as further definition of directions to leave her daughter for decision making if needed. Patient would also benefit from [facility] referral, would like me to make referral for her. Patient does have some resources, is interested in planning for the future which she might need, introduced hospice benefit what it provides and does not provide, will make referral to [facility] for long-term planning as well as counseling for adjustment to illness. Patient also interested and nutritional support, will give local resource for meal prep. Time Spent: 75 minutes with greater than 50% of this done in counseling regarding pain and symptom management, goals of care, advanced care planning, anticipatory guidance. Referrals to [facility], [facility], and nutritional support for coordination of care
== END 2019-11-25 14:46 | disposition home or self-care (01) ==
LOC: PC 14:45
PROVIDERS: ATTEND Nurse Practitioner Adult Health
DX: Z51.5 Encounter for palliative care (principal); G89.3 Neoplasm related pain (acute) (chronic); K59.03 Drug induced constipation; T40.2X5D Adverse effect of other opioids, subsequent encounter; K52.9 Noninfective gastroenteritis and colitis, unspecified; E11.9 Type 2 diabetes mellitus without complications; C56.9 Malignant neoplasm of unspecified ovary; C78.7 Secondary malignant neoplasm of liver and intrahepatic bile duct; Z79.899 Other long term (current) drug therapy; Z79.4 Long term (current) use of insulin; Z79.52 Long term (current) use of systemic steroids; Z79.891 Long term (current) use of opiate analgesic; Z92.3 Personal history of irradiation; Z92.21 Personal history of antineoplastic chemotherapy
CPT/HCPCS: 99345

== ENCOUNTER 2019-12-24 10:00 | Outpatient (CLI) | payer MEDICARE, BC ==
--- NOTE | 2019-12-24 13:17 | CONSULTATION NOTE ---
Palliative Care Follow Up - Referral Referring Provider: Dr. Kathie Torres Time of Visit: Referral setting: Home Referral Reason: Met Ovarian CA with extensive mets/liver mets/Goals of Care - Information Sources Records reviewed: Previous records reviewed History/Review of Systems obtained from: Patient, Family (daughter Chaparrita present; friend Jaci) Exam limitations: No limitations - History of Present Illness Update Brief HPI Update: Please see HPI 11/24 for more extensive history. 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 Patient is currently receiving treatment, but unfortunately had significant pancytopenia, including platelet count of 8000 on 12/03. She had recently just started her new chemotherapy of carboplatinum/gemcitabine and Avastin. She is hoping that she will be able to receive her next round, she had her labs drawn yesterday. Patient does present with significant fatigue, poor activity tolerance, breathlessness with activity, and poor performance status. She has been having increased pain, specifically right upper quadrant and left lower groin area but presents this self as more of a band. She is quite hesitant to take the pain medications, secondary constipation. She does take maybe 1 oxycodone twice a day, with poor control. Patient does present with significant anxiety, she did want to have a family meeting. I am meeting with her, her daughter Veena, and her friend Jaci who provides her support for appointments and transportation. She does understand the seriousness of her illness, but has always "fought", and is having trouble recognizing the concerns of her medical team, wanting to balance benefits over burdens and safety issues. 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 Has been recommended she obtain [facility], she has been working with the medical palliative care social service manager to consider hiring some help and support in the home. Her son is coming to visit this weekend, she is looking forward to this interaction. She is retired from [employer], but has been very active in patient support groups and in her community. Medications/Allergies - Medications Home Medications: Ambulatory Orders Medication Instructions Recorded Confirmed Atorvastatin Calcium 20 mg PO DAILY 11/25/19 12/24/19 Cholecalciferol (Vitamin D3) 2,000 units PO DAILY 11/25/19 12/24/19 [Vitamin D3] Diphenoxylate/Atropine [Lomotil] 1 - 2 tab PO Q4HR PRN MDD 12 11/25/19 12/24/19 Insulin Glargine [Lantus Solostar] 12 units SUBQ DAILY 11/25/19 12/24/19 Insulin Lispro [Humalog] 4 units SUBQ TID MDD 40 units 11/25/19 12/24/19 Levothyroxine [Synthroid] 75 mcg PO DAILY 11/25/19 12/24/19 Losartan Potassium 100 mg PO DAILY 11/25/19 12/24/19 Ondansetron [Ondansetron Odt] 4 mg PO Q8HR PRN 11/25/19 12/24/19 amLODIPine [Norvasc] 5 mg PO DAILY 11/25/19 12/24/19 metFORMIN [Glucophage] 1,500 mg PO DAILY MDD divided doses 11/25/19 12/24/19 Papaya 1 pkt PO DAILY 11/26/19 12/24/19 Prednisone 7.5 mg PO DAILY 11/26/19 12/24/19 Senna [Senokot] 1 - 2 mg PO BID PRN 11/26/19 12/24/19 oxyCODONE [Roxicodone] 1 - 2 tab PO Q4HR PRN 11/26/19 12/24/19 polyethylene glycoL 3350 [Miralax] 17 gm PO DAILY PRN 11/26/19 12/24/19 Methylphenidate [Ritalin] 5 - 10 mg PO DAILY PRN 12/24/19 12/24/19 - Allergies Allergies/Adverse Reactions: Allergies Allergy/AdvReac Type Severity Reaction Status Date / Time Penicillins Allergy Anaphylaxis Verified 11/25/19 18:55 lisinopril AdvReac Respiratory Verified 11/25/19 18:56 Review of Systems - Constitutional Constitutional: reports: Fatigue (worsening), Weight loss. denies: Fever, Chills - Eyes Eyes: reports: Vision loss, Corrective lenses - Ears, Nose & Throat Ears, Nose & Throat: reports: Postnasal drainage, Hoarseness, Dry mouth - Cardiovascular Cardiovascular: reports: Exertional dyspnea, Decr. exercise tolerance. denies: Chest pain, Edema - Respiratory Respiratory: reports: SOB with exertion. denies: Cough, Wheezing, SOB at rest - Gastrointestinal Gastrointestinal: reports: Abdominal pain, Constipation, Poor appetite, Early satiety, Other (taste changes). denies: Nausea, Reflux/heartburn - Genitourinary Genitourinary: reports: Incontinence - Musculoskeletal Musculoskeletal: reports: Stiffness, Muscle weakness (difficulty standing for greater than a couple of minutes; legs shakey), Assistive devices (to obtain rolling walker and wheelchair) - Integumentary Integumentary: reports: Dryness - Neurological Neurological: reports: General weakness, Numbness, Memory problems - Psychiatric Psychiatric: reports: Depression, Anxiety - Endocrine Endocrine: reports: Diabetes type 2 (BS low in am; 200 in later day), Hypothyroidism - Hematologic/Lymphatic Hematologic/Lymphatic: reports: Anemia - All Other Systems All Other Systems: reports: Reviewed and negative Physical Exam - Vital Signs Temperature: 96.9 C Pulse Rate: 91 Respiratory Rate: 18 O2 Saturation: 99 (ra @ rest) Blood Pressure: 122/84 (sitting; 112/86 standing) - Physical Exam General Appearance: positive: Alert, Mild distress, Anxious Eyes Bilateral: positive: Normal inspection ENT: positive: No signs of dehydration. negative: Pharyngeal erythema Neck: positive: Trachea midline Cardiovascular: positive: Regular rate & rhythm, Tachycardia Respiratory: positive: Diminished in bases. negative: Wheezes, Rales, Rhonchi Abdomen: positive: Soft, Nml bowel sounds, Tenderness, Guarding Skin: positive: Pallor, Dryness Extremities: positive: No pedal edema, Other (unable to stand for periods of greater than 1-2 minutes with fatigue/weakness) Neurologic/Psychiatric: positive: Oriented x3, Weakness, Other (anxious) Palliative Care - POLST Patient has POLST: No Pain: Pain worsening, Location (right upper quadrant; band around mid abdominal area; persistant; worsens with standing) Tiredness/Fatigue: Severe (7-10) Drowsiness/Sedation: Moderate (4-6) Nausea: None Anorexia: Moderate (4-6), Weight loss Dyspnea: Mild (1-3) Depression: Moderate (4-6) Anxiety: Severe (7-10) Feelings of wellbeing/Perceived Quality of Life: Fair, Worsening Sleep: Sleeps well Constipation: Yes, Opoid induced, Unmanaged Performance Status: Patient less and less able to be able to meet her ADL needs. Difficulty standing, is quite nervous about bathing. She currently ambulates short distances. This is both related to fatigue, muscle weakness, and pain. Would put her at a ECOG 3, or PPS of 50%. 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 We discussed the continuum of care. Her goals are still quite treatment oriented, and is very much for treatment "going for it". Her goal is to make it 5 years for 06/18, understanding she does have serious illness. We did discuss in the context of this her distress about not getting treatment/or reduction in dosing. Revisited weighing benefits and burdens, as well as concern for complications. Patient would in the bigger picture, like to have a at home, answered multiple questions regarding questions about hospice. She could use to increase support at this point in time, we discussed private versus agency. Did recommend strongly that she start looking and find someone she is comfortable with, she already could use help given her decline in functional status. Results - Lab Results Lab and Imaging Results: labs drawn yesterday in [place], results not available yet. Impression and Recommendations - Palliative Care Impression: This is a 59-year-old woman with recurrent ovarian/fallopian tube cancer, with metastatic disease, currently receiving palliative treatment. She has increasing symptom burden, decreased activity tolerance, and functional decline. Palliative care providing support regarding pain and symptom management, and anticipatory guidance. Recommendations/Counseling Done: 1. Pain of neoplastic origin. Patient is under medicating, has persistent and uncontrolled pain. Patient is fairly opioid juvenal. Counseling provided regarding need to create steady-state for pain relief, will titrate up slowly, she is to titrate up to 4 tabs spread through the day, patient verbalized understanding. We discussed possibly transitioning to fentanyl patch depending on final opioid dosing, she dislikes pills, and this also has less constipating side effects. 2. Constipation, opioid induced. Patient actually baseline is usually diarrhea, counseling provided regarding bowel program with MiraLAX 1 capful daily, and senna 8.6 mg 1 tab twice a day, and titrating with "mush" and "push" for soft BM daily goal.Written instructions provided. 3. Diabetes type 2. Patient reports her A1c was around 7, she had been having lower blood sugars in the a.m. 70-80, higher in the evening around 200. Patient has been dosing her metformin 500 in a.m., 1000 at night. Patient's been instructed to switch to that around with 1000 mg in a.m. and 500 mg in the evening. We will continue to monitor and titrate accordingly. 4. Fatigue. This is multifactorial in origin. Patient has prescription for Ritalin. Counseling provided that it will not counterbalance anemia, but could counterbalanced side effects of her pain medication, and to be used as a tool but will not "fix" her underlying disease processes well as low counts. Counseling provided regarding energy conservation, balancing activities with encouraging progressive ambulation. Patient currently has very poor activity tolerance, and only able to stand for short periods of time. Patient may actually have low counts, labs are not currently available. Counseling provided regarding recommendation for obtaining wheelchair. 5. Anxiety. This is multifactorial, patient is quite anxious about her impending decline. Counseling provided regarding questions of the continuum of care, support needs. Will be seeing Palliative Care Customs Officer for ongoing support and LTP. 6. Anorexia. Counseling provided regarding concerns for obstruction, calorie needs, what "best diet". Discussed at length small frequent feedings, soft foods, soup, yogurt, and ways to balance energy with food preparation, concern patient is going to get too overwhelmed, encouraged to keep simple. She does have friends providing meals, discussed suggestions and ways to manage this as well. 7. Advanced care planning. Met daughter, patient had wanted her to be D POA, will continue to pursue documentation as well as documentation of end-of-life wishes. She does have her son coming to visit this weekend, encouraged to set priorities regarding relationships and things that are important at this point in time. Patient is very treatment focus, encouraged to step back and find things that bring her sendy and support in her current situation and time. Time Spent: 75 minutes with greater than 50% of this done in counseling regarding advanced care planning, anticipatory guidance, pain and symptom management.
== END 2019-12-24 10:01 | disposition home or self-care (01) ==
LOC: PC 10:00
PROVIDERS: ATTEND Nurse Practitioner Adult Health
DX: Z51.5 Encounter for palliative care (principal); G89.3 Neoplasm related pain (acute) (chronic); K59.03 Drug induced constipation; T40.2X5D Adverse effect of other opioids, subsequent encounter; E11.9 Type 2 diabetes mellitus without complications; R53.83 Other fatigue; F41.9 Anxiety disorder, unspecified; R63.0 Anorexia; R63.4 Abnormal weight loss; C56.9 Malignant neoplasm of unspecified ovary; C78.7 Secondary malignant neoplasm of liver and intrahepatic bile duct; C77.9 Secondary and unspecified malignant neoplasm of lymph node, unspecified; R06.09 Other forms of dyspnea; Z79.899 Other long term (current) drug therapy; Z79.891 Long term (current) use of opiate analgesic; Z79.4 Long term (current) use of insulin
CPT/HCPCS: 99350